=== PATIENT | female | born 1995 | race Caucasian/White ===

== ENCOUNTER 2016-11-24 16:40 | Emergency (ER) | payer OTHER ==
[~2016-11-24] VITALS: Ht 160 cm; Wt 54.5 kg
[2016-11-24 16:45] VITALS: BP 128/86; PULSE 91; RESP 22; O2SAT 100
[2016-11-24 17:54] LABS: BASOPHILS % (AUTO) 0.2 % (0-3); EOSINOPHILS % (AUTO) 0.4 % (0-5); MONOCYTES % (AUTO) 5.3 % (4-12); Mean Corpuscular Hemoglobin 27.4 pg (27.0-35.0); Mean Corpuscular Volume 86.1 fL (81-100); NEUTROPHILS % (AUTO) 70.1 % (40-74); Platelet Count 332 bil/L (150-400)
--- NOTE | 2016-11-24 18:29 | ED.REPORT ---
HPI-Abd Pain F Under 38 Date of Service Nov 24, 2016 ED Provider: Aung Mendoza MD This is a 21 year old female with a history of ovarian cysts presenting to the emergency department complaining of bilateral lower abdominal pain that began one week ago. Describes RLQ pain and LLQ pain that radiates to mid-abdomen. Pain is progressively worsening and associated with nausea. Denies vomiting, diarrhea, constipation, abnormal vaginal discharge, dysuria, fever, or chills. Pt took hydrocodone earlier today without pain relief. LMP 10/25/2016. Denies new sexual partners. Not sexually active at this time, not using contraception. PCP Dr. Galvin. Nursing Notes Stated Complaint: ABDOMINAL PAIN/LOW BACK PAIN Chief Complaint: Female Abdominal Pain Nursing Notes Reviewed: Yes Allergies: Coded Allergies: No Known Allergies (Verified Allergy, Unknown, 11/24/16) General Time Seen by MD: 18:27 Chief Complaint Abdominal pain Hx Obtained From: Patient Arrived By: Walk-in Sudden in Onset?: Yes Onset Occurred: Just prior to arrival Symptom Duration: Since onset Severity: Current: Moderate Pertinent Negative: Pt denies other symptoms Recent Healthcare: No recent doctor visit, No recent hospitalization Similar Sx Previous: No Past Medical History Past Medical History Past Surgical History Denies Smoking History Unknown if Ever Smoker Social History Alcohol Use: "Social" Drug Use: Denies drug use Ambulatory Status Independent Review of Systems Constitutional: Denies: Chills, Fever GI: Reports: Abdominal pain, Nausea, Denies: Vomiting Female: Denies: Dysuria, Flank pain, Vaginal bleeding - abnl, Vaginal discharge Complete sys rev & neg: except as marked. Physical Exam Initial Vital Signs Vital Signs (First) Date Time Temp Pulse Resp B/P Pulse Ox O2 Delivery O2 Flow Rate FiO2 11/24/16 16:45 36.8 91 22 128/86 100 11/24/16 22:02 Room Air Initial VS: Reviewed Head / Eyes: Atraumatic, Normocephalic, PERRL ENT: Mucous membranes moist, Conjunctiva normal, No scleral icterus Extremities: Vascular intact, Neuro intact, No swelling, No tenderness Skin: Warm, Dry, No cyanosis Neurologic: Alert, Oriented, Nonfocal Psychiatric: Mood/affect normal, Behavior normal, Normal thought content General/Constitutional: Awake, Alert Respiratory / Chest: Breath sounds NL, Breath sounds = bilat, No respiratory distress, No rales, No rhonchi, No wheezing Cardiovascular: Heart rate NL, Regular rhythm, Heart sounds NL, Peripheral circulation NL Abdomen: BS normoactive Tenderness/Guarding/Rebound: Positive: Tender LLQ..., Tender RLQ... Back: Inspection NL, Non-tender, No midline vertebral tend, No paraspinal tenderness, No CVA tenderness Female Genitourinary: Carbon Brushes Assembler present, External genitalia NL Moderate purulent discharge present with vaginal tenderness. Positive cervical motion tenderness, bilateral adenexal tenderness without mass. Interpretation & Diagnostics Interpretation & Diagnostics: Urine dip negative negative Lab Results Interpretation Result Diagram: 11/24/16 1744 11/24/16 1744 Test 11/24/16 17:44 11/24/16 19:28 11/24/16 20:25 White Blood Count 8.4th/mm3 (3.8-10.1) Red Blood Count 4.31mil/mm3 (3.90-5.20) Hemoglobin 11.8g/dL (12.0-15.6) Hematocrit 37.1% (35.0-46.0) Mean Corpuscular Volume 86.1fL (81-100) Mean Corpuscular Hemoglobin 27.4pg (27.0-35.0) Mean Corpuscular Hemoglobin Concent 31.8% (32.0-37.0) Red Cell Distribution Width 16.1% (12.3-15.4) Platelet Count 332bil/L (150-400) Neutrophils (%) (Auto) 70.1% (40-74) Lymphocytes (%) (Auto) 23.9% (14-46) Monocytes (%) (Auto) 5.3% (4-12) Eosinophils (%) (Auto) 0.4% (0-5) Basophils (%) (Auto) 0.2% (0-3) Sodium Level 138mEq/L (134-144) Potassium Level 3.9mEq/L (3.5-5.2) Chloride Level 102mEq/L (97-108) Carbon Dioxide Level 22mmol/L (18-29) Blood Urea Nitrogen 10mg/dL (6-20) Creatinine 0.51mg/dL (0.57-1.00) Estimat Glomerular Filtration Rate 214mL/min (>59) Glucose Level 85mg/dL (60-99) Calcium Level 8.7mg/dL (8.5-10.1) Magnesium Level 2.0mg/dL (1.6-2.6) Total Bilirubin 0.2mg/dL (0.0-1.2) Aspartate Amino Transf (AST/SGOT) 14U/L (0-50) Alanine Aminotransferase (ALT/SGPT) 12U/L (0-32) Alkaline Phosphatase 68U/L (25-150) Total Protein 7.3g/dL (6.4-8.4) Albumin 4.2g/dL (3.4-5.0) Lipase 37U/L (13-60) Hold Ann Top Tube Received (Received) Urine Color Straw (YELLOW) Urine Appearance Clear (CLEAR,HAZY) Urine pH 7.0 (5.0-8.0) Urine Specific [place] 1.010 (1.003-1.035) Urine Protein Negativemg/dL (NEG,TRACE) Urine Glucose (UA) Negativemg/dL (NEGATIVE) Urine Ketones Negativemg/dL (NEGATIVE) Urine Occult Blood Small (NEGATIVE) Urine Nitrite Negative (NEGATIVE) Urine Bilirubin Negative (NEGATIVE) Urine Urobilinogen Normalmg/dL (NORMAL) Urine Leukocyte Esterase Negative (NEGATIVE) Urine RBC 0-2/hpf (0-2) Urine WBC 0-5/hpf (0-5) Urine Epithelial Cells None/hpf (NONE-MOD) Urine Crystals None seen (NONE SEEN) Urine Bacteria Many/hpf (NONE-FEW) Urine Hyaline Casts None/lpf (NONE) Urine Granular Casts None seen (NONE SEEN) Urine Waxy Casts None seen (NONE SEEN) Urine Red Blood Cell Casts None seen (NONE SEEN) Urine White Blood Cell Casts None seen (NONE SEEN) Urine Mucus Present (None Seen) Urine Trichomonas None seen (NONE SEEN) Urine Yeast None (NONE SEEN) Urinalysis Comment None Urine Culture Reflexed Indicated Re-Eval/Medical Decision Counseled Regarding: Diagnosis, Lab results, Need for follow-up Discharge & Departure Primary Impression: Pelvic inflammatory disease (PID) Disposition: Home Discharge Condition All VS Reviewed: Yes Condition: Stable Patient Instructions: Pelvic Inflammatory Disease (ED) Additional Instructions: Emergency Department evaluation included, examination and labs. Examination is suggestive of pelvic inflammatory disease. Testing for gonorrhea and Chlamydia was performed, results will not be available for approximately 2 days. Call in about 2 days for results. Azithromycin and Rocephin was given in the emergency department. This should cover infection. May use hydrocodone/APAP one to 2 as needed for severe pain, ibuprofen 60 mg every 6 hours as needed for pain also. The primary care in 3-5 days. Emergency department for fevers uncontrolled vomiting or severe pain. Referrals: Paola Galvin MD (PCP) Scribe Attestation Portions of this note were transcribed by Tony Westbrook. I, Dr. Mendoza personally performed the history, physical exam and medical decision-making; I reviewed and confirmed the accuracy of the information in the transcribed note. Signed by Jamie Nino, 11/24/2016 at 20:00. Aung Mendoza MD Nov 24, 2016 18:29 TONY WESTBROOK Nov 24, 2016 18:32
[2016-11-24 20:26] LABS: APPEARANCE,URINE CLEAR (CLEAR,HAZY); COLOR,URINE STRAW (YELLOW); OCCULT BLOOD,URINE SMALL (NEGATIVE); UROBILINOGEN,URINE NORMAL (NORMAL)
[2016-11-24] MEDS ORDERED: _HYDROcodone/APAP 5-325 mg Tablet PO PRN (20:35)
[2016-11-24] MEDS ORDERED: HYDROcodone-APAP 5-325 mg Tablet PO ONE (20:35)
[2016-11-24] MEDS ORDERED: cefTRIAXone Inj 250 MG, Lidocaine PF 1% Inj 0.9 ML in Syringe 1 EACH IM ONE (20:35)
[2016-11-24 22:02] VITALS: BP 127/75; PULSE 68; O2SAT 100
[2016-11-24 22:41] VITALS: BP 127/75; PULSE 68; O2SAT 100
== END 2016-11-24 22:43 | disposition home or self-care (01) ==
LOC: SED 16:40
DX: N73.9 Female pelvic inflammatory disease, unspecified (principal); B96.20 Unspecified Escherichia coli [E. coli] as the cause of diseases classified elsewhere
CPT/HCPCS: 36415; 80053; 81000; 81025; 83690; 83735; 85025; 87086; 87088; 87186; 87210; 87491; 87591; 96372; 99284; J0696